=== PATIENT | female | born 1950 | race Caucasian/White ===

== ENCOUNTER 2017-12-20 16:12 | Inpatient (IN) | payer MEDICARE, MEDICAID ==
[~2017-12-20] VITALS: Ht 165.1 cm; Wt 60.8 kg
[2017-12-20] MEDS ORDERED: SODIUM CHLORIDE 0.9% 1,000 ML IV ONE (16:35)
[2017-12-20] MEDS ORDERED: HYDROmorphone 1 MG/ML, 1ML ONE (16:44)
[2017-12-20] MEDS ORDERED: ONDANSETRON 2MG/ML, 2ML ONE ×2 (16:44→19:03)
[2017-12-20] MEDS ORDERED: ONDANSETRON 2MG/ML, 2ML IVPush ONE ×2 (17:00→19:30)
[2017-12-20] MEDS ORDERED: PLEASE ENTER ALLERGIES MC SCH (17:00)
[2017-12-20] MEDS ORDERED: SODIUM CHLORIDE FLUSH 10ML SYR IVF ONE (17:00)
[2017-12-20] MEDS ORDERED: PLEASE ENTER HEIGHT AND WEIGHT MC SCH (17:00)
[2017-12-20 17:17] LABS: BASOPHILS # (AUTO) 0.05 x10^3/uL (0-0.1); BASOPHILS % (AUTO) 0 % (0-1); EOSINOPHILS # (AUTO) 0.23 x10^3/uL (0-0.4); EOSINOPHILS % (AUTO) 2 % (1-7); LYMPHOCYTES # (AUTO) 2.96 x10^3/uL (1-3.4); LYMPHOCYTES % (AUTO) 25 % (22-44); MD NO; MEAN CORPUSCULAR HEMOGLOBIN 30.7 pg (27.0-34.8); MEAN CORPUSCULAR HGB CONC 33.4 g/dL (32.4-35.8); MEAN PLATELET VOLUME 7.6 fL (7.4-10.4); MONOCYTES # (AUTO) 0.65 x10^3/uL (0.2-0.8); MONOCYTES % (AUTO) 6 % (2-9); NEUTROPHILS # (AUTO) 8.04 x10^3/uL (1.8-6.8); NEUTROPHILS % (AUTO) 67 % (42-75); PLATELET COUNT 200 x10^3/uL (130-400); RED BLOOD COUNT 4.91 x10^6/uL (3.82-5.3); RED CELL DISTRIBUTION WIDTH 13.1 % (9.6-15.2)
[2017-12-20 17:24] LABS: PROTHROMBIN TIME 10.3 Seconds (9.6-11.5)
[2017-12-20 17:27] LABS: ALBUMIN 3.6 g/dL (3.4-5.0); ANION GAP 6 mmol/L (5-15); CALCIUM 8.9 mg/dL (8.5-10.1); CHLORIDE 110 mmol/L (98-107)
[2017-12-20 17:33] LABS: ALANINE AMINOTRANSFERASE 19 U/L (12-78); ALKALINE PHOSPHATASE 80 U/L (45-117); BILIRUBIN,TOTAL 0.6 mg/dL (0.2-1.0); CREATININE 0.83 mg/dL (0.55-1.02); TOTAL PROTEIN 6.9 g/dL (6.4-8.2); TROPONIN I < 0.015 ng/mL (0.000-0.045)
[2017-12-20] MEDS: HYDROmorphone 1 MG/ML, 1ML IVPush PRN ×2 (17:41→21:41)
[2017-12-20] MEDS ORDERED: SODIUM CHLORIDE FLUSH 10ML SYR IVF PRN (19:30)
[2017-12-20] MEDS ORDERED: LISI-170 PO (19:54)
[2017-12-20] MEDS ORDERED: ASPI325T17 PO (19:54)
[2017-12-20] MEDS ORDERED: EYECAP (19:54)
[2017-12-20] MEDS ORDERED: morphine SULFATE 10 MG/ML, 1ML IVPush PRN (21:30)
[2017-12-20] MEDS ORDERED: ACETAMINOPHEN 325 MG TABLET PO PRN (21:30)
[2017-12-20] MEDS ORDERED: ENALAPRILAT 1.25 MG/ML, 2ML IVPush PRN (21:30)
[2017-12-20] MEDS ORDERED: POLYETHYLENE GLYCOL 17 GM PACKET PO PRN (21:30)
[2017-12-20] MEDS ORDERED: BISACODYL 10 MG SUPP PR PRN (21:30)
[2017-12-20] MEDS ORDERED: hydrALAzine 20 MG/ML, 1ML IVPush PRN (21:30)
[2017-12-20 21:46] LABS: FREE T4 (FREE THYROXINE) 1.13 ng/dL (0.76-1.46); THYROID STIMULATING HORMONE 1.48 mIU/L (0.358-3.740)
[2017-12-20 21:47] LABS: HEMOGLOBIN A1C 5.7 % (4.2-6.3)
[2017-12-20] MEDS: NICOTINE 7 MG/24 HR PATCH.TD24 TD SCH (21:47)
[2017-12-20 21:57] LABS: MICROSCOPIC AUTO
[2017-12-20] MEDS: ONDANSETRON 2MG/ML, 2ML IVPush PRN (21:57)
[2017-12-20 21:59] LABS: CULTURE INDICATED? NO
[2017-12-20] MEDS: OXYcodone IR 5MG TABLET PO PRN (22:02)
[2017-12-20 22:12] VITALS: BP 126/92
[2017-12-20 22:43] VITALS: BP 126/92
[2017-12-21] MEDS: OXYcodone IR 5MG TABLET PO PRN ×2 (00:18→22:41)
[2017-12-21 05:05] LABS: ALANINE AMINOTRANSFERASE 23 U/L (12-78); ALBUMIN 3.7 g/dL (3.4-5.0); ANION GAP 7 mmol/L (5-15); CALCIUM 8.6 mg/dL (8.5-10.1); CHLORIDE 109 mmol/L (98-107); CHOLESTEROL, TOTAL 161 mg/dL (140-239); CREATININE 0.93 mg/dL (0.55-1.02)
[2017-12-21 05:07] LABS: ALKALINE PHOSPHATASE 82 U/L (45-117); BILIRUBIN,TOTAL 1.2 mg/dL (0.2-1.0); CHOL/HDL RATIO 2.9; HDL CHOL % 35 % (28-40); HDL CHOLESTEROL (DIRECT) 56 mg/dL (40-60); LDL CHOLESTEROL,CALCULATED 94 mg/dL (54-169); LDL/HDL RATIO 1.7 (0.5-3.0); TOTAL PROTEIN 7.3 g/dL (6.4-8.2); TRIGLYCERIDES 55 mg/dL (50-200); VLDL CHOLESTEROL 11 mg/dL (0-25)
[2017-12-21 05:24] LABS: BASOPHILS # (AUTO) 0.04 x10^3/uL (0-0.1); BASOPHILS % (AUTO) 0 % (0-1); EOSINOPHILS % (AUTO) 0 % (1-7); LYMPHOCYTES % (AUTO) 10 % (22-44); MD NO; MEAN CORPUSCULAR HEMOGLOBIN 30.8 pg (27.0-34.8); MEAN CORPUSCULAR HGB CONC 33.7 g/dL (32.4-35.8); MEAN CORPUSCULAR VOLUME 91.4 fL (80-100); MEAN PLATELET VOLUME 7.7 fL (7.4-10.4); MONOCYTES # (AUTO) 0.96 x10^3/uL (0.2-0.8); MONOCYTES % (AUTO) 7 % (2-9); NEUTROPHILS # (AUTO) 11.43 x10^3/uL (1.8-6.8); NEUTROPHILS % (AUTO) 83 % (42-75); PLATELET COUNT 153 x10^3/uL (130-400); RED BLOOD COUNT 5.11 x10^6/uL (3.82-5.3); RED CELL DISTRIBUTION WIDTH 12.9 % (9.6-15.2)
[2017-12-21] MEDS ORDERED: LISINOPRIL 20 MG TABLET PO SCH (09:00)
[2017-12-21] MEDS: SENNA/DOCUSATE TABLET PO SCH (11:02)
[2017-12-21] MEDS: NICOTINE 7 MG/24 HR PATCH.TD24 TD SCH (11:03)
[2017-12-21] MEDS: ONDANSETRON 2MG/ML, 2ML IVPush PRN (12:10)
[2017-12-22 04:16] LABS: BASOPHILS # (AUTO) 0.08 x10^3/uL (0-0.1); BASOPHILS % (AUTO) 1 % (0-1); EOSINOPHILS # (AUTO) 0.12 x10^3/uL (0-0.4); EOSINOPHILS % (AUTO) 1 % (1-7); LYMPHOCYTES # (AUTO) 2.45 x10^3/uL (1-3.4); LYMPHOCYTES % (AUTO) 19 % (22-44); MD NO; MEAN CORPUSCULAR HEMOGLOBIN 31.1 pg (27.0-34.8); MEAN CORPUSCULAR VOLUME 91.5 fL (80-100); MEAN PLATELET VOLUME 7.1 fL (7.4-10.4); MONOCYTES # (AUTO) 0.87 x10^3/uL (0.2-0.8); MONOCYTES % (AUTO) 7 % (2-9); NEUTROPHILS # (AUTO) 9.14 x10^3/uL (1.8-6.8); NEUTROPHILS % (AUTO) 72 % (42-75); PLATELET COUNT 111 x10^3/uL (130-400); RED BLOOD COUNT 4.67 x10^6/uL (3.82-5.3); RED CELL DISTRIBUTION WIDTH 13.5 % (9.6-15.2)
[2017-12-22 04:26] LABS: ANION GAP 6 mmol/L (5-15); CALCIUM 8.3 mg/dL (8.5-10.1); CHLORIDE 104 mmol/L (98-107); CREATININE 0.97 mg/dL (0.55-1.02)
[2017-12-22] MEDS: SENNA/DOCUSATE TABLET PO SCH (09:33)
[2017-12-22] MEDS: NICOTINE 7 MG/24 HR PATCH.TD24 TD SCH (09:33)
[2017-12-22] MEDS: AMPICILLIN/SULBACTAM 3 GM in SODIUM CHLORIDE 0.9% 100 ML IV SCH ×3 (09:42→22:12)
[2017-12-22 14:00] VITALS: BP 102/63
[2017-12-22 19:36] VITALS: BP 91/50
[2017-12-23 03:26] VITALS: BP 92/53
[2017-12-23] MEDS: AMPICILLIN/SULBACTAM 3 GM in SODIUM CHLORIDE 0.9% 100 ML IV SCH ×4 (04:33→22:17)
[2017-12-23 05:21] LABS: CHLORIDE 105 mmol/L (98-107)
[2017-12-23 05:25] LABS: MEAN CORPUSCULAR HEMOGLOBIN 31.3 pg (27.0-34.8); MEAN CORPUSCULAR HGB CONC 34.4 g/dL (32.4-35.8); MEAN CORPUSCULAR VOLUME 90.9 fL (80-100); MEAN PLATELET VOLUME 7.4 fL (7.4-10.4); PLATELET COUNT 94 x10^3/uL (130-400); RED BLOOD COUNT 4.43 x10^6/uL (3.82-5.3)
[2017-12-23 05:37] LABS: ANION GAP 10 mmol/L (5-15); CALCIUM 8.3 mg/dL (8.5-10.1); CREATININE 0.78 mg/dL (0.55-1.02)
[2017-12-23 06:37] LABS: MD YES
[2017-12-23 06:44] LABS: BAND#(MANUAL) 0.11 x10^3/uL; BANDS%(MANUAL) 1 % (0-7); BASOS#(MANUAL) 0.11 x10^3/uL (0-0.1); BASOS% (MANUAL) 1 % (0-1); EOS#(MANUAL) 0.32 x10^3/uL (0.0-0.4); EOS% (MANUAL) 3 % (1-7); LYMPH#(MANUAL) 2.16 x10^3/uL (1-3.4); LYMPHS% (MANUAL) 20 % (22-44); MONOS#(MANUAL) 1.08 x10^3/uL (0.3-2.7); MONOS% (MANUAL) 10 % (2-9); REACTIVE LYMPHS # (MANUAL) 0.11 x10^3/uL (0-0); REACTIVE LYMPHS % (MANUAL) 1 % (0-0); SEG#(MANUAL) 6.91 x10^3/uL (1.8-6.8); SEGS% (MANUAL) 64 % (42-75)
[2017-12-23 06:45] LABS: <RBC MORPHOLOGY> NORMAL
[2017-12-23 06:46] LABS: <PLATELET ESTIMATE> DECREASED; <PLT MORPHOLOGY> NORMAL PLT MORPH
[2017-12-23 07:05] VITALS: BP 99/60
[2017-12-23] MEDS: SENNA/DOCUSATE TABLET PO SCH (08:05)
[2017-12-23] MEDS: NICOTINE 7 MG/24 HR PATCH.TD24 TD SCH (08:05)
[2017-12-23 14:08] VITALS: BP 107/69
[2017-12-23 16:35] VITALS: BP 107/64
[2017-12-23 19:10] VITALS: BP 99/59
[2017-12-24 02:00] VITALS: BP 113/62
[2017-12-24 02:54] VITALS: BP 102/64
[2017-12-24] MEDS: AMPICILLIN/SULBACTAM 3 GM in SODIUM CHLORIDE 0.9% 100 ML IV SCH ×2 (03:34→10:53)
[2017-12-24 07:56] VITALS: BP 105/64
[2017-12-24] MEDS: SENNA/DOCUSATE TABLET PO SCH (08:37)
[2017-12-24] MEDS: NICOTINE 7 MG/24 HR PATCH.TD24 TD SCH (08:38)
[2017-12-24 14:05] VITALS: BP 123/73
== END 2017-12-24 14:55 | disposition home or self-care (01) | DRG 299 ==
LOC: ED 19:23 → EDIP 19:30 → CCU 21:19 → 5SO 12-22 13:56 → DCLOUNGE 12-24 14:47
PROVIDERS: ADMIT Internal Medicine; ATTEND Hospitalist
DX: I71.03 Dissection of thoracoabdominal aorta (principal); J18.9 Pneumonia, unspecified organism; J44.0 Chronic obstructive pulmonary disease with (acute) lower respiratory infection; I70.1 Atherosclerosis of renal artery; D72.828 Other elevated white blood cell count; F17.210 Nicotine dependence, cigarettes, uncomplicated; I10 Essential (primary) hypertension; Z79.82 Long term (current) use of aspirin; Z79.899 Other long term (current) drug therapy; Z82.49 Family history of ischemic heart disease and other diseases of the circulatory system; Z86.711 Personal history of pulmonary embolism; Z91.19 Patient's noncompliance with other medical treatment and regimen; Z88.2 Allergy status to sulfonamides
CPT/HCPCS: 36415; 71275; 74177; 80048; 80053; 80061; 81001; 83036; 83735; 83880; 84439; 84443; 84484; 85025; 85610; 87081; 93005; 93306; 96361; 96365; 96366; 96375; 96376; J0295; J1170; J2405; J2270; J7030; J7050